=== PATIENT | female | born 1980 | race Caucasian/White ===

== ENCOUNTER 2019-04-19 01:10 | Emergency (ER) | payer OTHER ==
[2019-04-19 02:31] VITALS: BP 136/83
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
== END 2019-04-19 02:10 | disposition home or self-care (01) ==
LOC: FB.ED 01:10
DX: F12.90 Cannabis use, unspecified, uncomplicated (principal); F41.8 Other specified anxiety disorders; F90.9 Attention-deficit hyperactivity disorder, unspecified type; Z79.899 Other long term (current) drug therapy
CPT/HCPCS: 80305-QW; 99282

== ENCOUNTER 2023-11-07 03:48 | Emergency (ER) | payer BC, OTHER ==
[2023-11-07 04:48] LABS: HEMATOCRIT 34.6 % (34.2-48.2); HEMOGLOBIN 11.2 g/dL (11.4-15.5); MEAN CORPUSCULAR HEMOGLOBIN 28.4 pg (23.9-33.9); MEAN CORPUSCULAR HGB CONC 32.5 g/dL (31.9-34.8); MEAN CORPUSCULAR VOLUME 87.3 fL (76.7-100.5); MEAN PLATELET VOLUME 9.7 fL (7.1-12.4); PLATELET COUNT,PLT 266 x10(3)uL (151-488); RED BLOOD CELL COUNT 3.96 x10(6)uL (3.60-5.20); RED CELL DISTRIBUTION WIDTH 13.9 % (12.3-16.5); WHITE BLOOD CELL COUNT,WBC 19.6 x10-3/uL (3.0-10.3)
[2023-11-07 04:49] LABS: BLOOD UREA NITROGEN,BUN 18 mg/dL (7-18); BUN/CREATININE RATIO 25.7 (9-20); CALCIUM 9.1 mg/dL (8.6-10.2); CARBON DIOXIDE,CO2 28 mmol/L (21-32); CHLORIDE,CL 102 mmol/L (100-110); CREATININE 0.7 mg/dL (0.55-1.02); ESTIMATED GFR 111 mL/min (>60); GLUCOSE RANDOM 150 mg/dL (80-116); POTASSIUM,K 3.4 mmol/L (3.5-5.3); SODIUM,NA 136 mmol/L (135-145)
[2023-11-07 04:52] VITALS: BP 158/99; PULSE 114
[2023-11-07] MEDS ORDERED: Ibuprofen 800 MG Tab PO ONE (05:06)
[2023-11-07] MEDS ORDERED: Potassium Chloride 20 MEQ Tab.ER PO ONE (05:06)
[2023-11-07] MEDS ORDERED: Acetaminophen 500 MG Tab PO ONE (05:06)
[2023-11-07 05:15] LABS: BAND PERCENT MAN 1 % (0-6); LYMPHOCYTES PERCENT MAN 11 % (13-37); MONOCYTES PERCENT MAN 3 % (4-12); SEG NEUTROPHILS PERCENT MAN 85 % (46-82)
== END 2023-11-07 05:24 | disposition home or self-care (01) ==
LOC: FB.ED 03:48
DX: R07.81 Pleurodynia (principal); J20.9 Acute bronchitis, unspecified; J45.909 Unspecified asthma, uncomplicated; Z88.2 Allergy status to sulfonamides; Z91.018 Allergy to other foods
CPT/HCPCS: 36415; 80048; 84484; 85025; 93005; A9270

== ENCOUNTER 2024-12-11 20:30 | Emergency (ER) | payer OTHER ==
[2024-12-11 21:01] LABS: BILIRUBIN,URINE NEGATIVE (NEGATIVE); GLUCOSE,URINE NORMAL (NORMAL); KETONES,URINE NEGATIVE (NEGATIVE); LEUKOCYTE ESTERASE,URINE NEGATIVE (NEGATIVE); NITRITE,URINE NEGATIVE (NEGATIVE); OCCULT BLOOD,URINE NEGATIVE (NEGATIVE); PROTEIN,URINE NEGATIVE (NEGATIVE); UROBILINOGEN,URINE NORMAL (NEGATIVE)
[2024-12-11 21:09] LABS: BASOPHILS ABSOLUTE AUTO 0.1 x10-3/uL (0.0-0.1); BASOPHILS PERCENT AUTO 0.8 % (0.2-1.5); EOSINOPHILS ABSOLUTE AUTO 0.1 x10-3/uL (0.0-0.8); EOSINOPHILS PERCENT AUTO 1.1 % (0.6-8.1); HEMOGLOBIN 12.9 g/dL (11.4-15.5); LYMPHOCYTES PERCENT AUTO 17.2 % (18.4-52.1); MEAN CORPUSCULAR HEMOGLOBIN 28.8 pg (23.9-33.9); MEAN CORPUSCULAR VOLUME 87.3 fL (76.7-100.5); MEAN PLATELET VOLUME 9.7 fL (7.1-12.4); MONOCYTES ABSOLUTE AUTO 0.9 x10-3/uL (0.3-1.0); MONOCYTES PERCENT AUTO 7.5 % (4.4-15.7); NEUTROPHILS ABSOLUTE AUTO 8.4 x10-3/uL (1.5-6.3); NEUTROPHILS PERCENT AUTO 73.4 % (30.8-76.2); PLATELET COUNT,PLT 276 x10(3)uL (151-488); RED BLOOD CELL COUNT 4.47 x10(6)uL (3.60-5.20); RED CELL DISTRIBUTION WIDTH 14.1 % (12.3-16.5); WHITE BLOOD CELL COUNT,WBC 11.4 x10-3/uL (3.0-10.3)
[2024-12-11 21:11] LABS: APPEARANCE,URINE CLEAR (CLEAR); COLOR,URINE YELLOW (YELLOW)
[2024-12-11 21:14] LABS: BLOOD UREA NITROGEN,BUN 15 mg/dL (7-18); BUN/CREATININE RATIO 18.8 (9-20); CALCIUM 9.4 mg/dL (8.6-10.2); CARBON DIOXIDE,CO2 29 mmol/L (21-32); CHLORIDE,CL 102 mmol/L (100-110); CREATININE 0.8 mg/dL (0.55-1.02); EST CRCL DRUG DOSING (CG) 88.18 mL/min; ESTIMATED GFR 94 mL/min (>60); GLUCOSE RANDOM 88 mg/dL (80-116); POTASSIUM,K 3.8 mmol/L (3.5-5.3); SODIUM,NA 139 mmol/L (135-145)
[2024-12-11 21:20] LABS: ALANINE AMINOTRANSFERASE,ALT 23 U/L (12-36); ALBUMIN 3.8 g/dL (3.5-5.2); ALKALINE PHOSPHATASE 64 IU/L (56-112); ASPARTATE AMNIOTRANSFERASE,AST 13 IU/L (5-25); BILIRUBIN TOTAL 0.4 mg/dL (0.1-1.3); PROTEIN TOTAL,TP 7.5 g/dL (6.0-8.0)
[2024-12-11] MEDS: Iopamidol 755 Mg/ML 100 ML Bottle IV ONE (21:27)
[2024-12-11 21:29] VITALS: PULSE 79
[2024-12-11 22:54] VITALS: BP 126/78
== END 2024-12-11 22:38 | disposition home or self-care (01) ==
LOC: FB.ED 20:30
DX: R10.31 Right lower quadrant pain (principal); F17.210 Nicotine dependence, cigarettes, uncomplicated; Z91.011 Allergy to milk products; Z88.2 Allergy status to sulfonamides; Z91.018 Allergy to other foods; Z79.899 Other long term (current) drug therapy; Z88.1 Allergy status to other antibiotic agents; Z86.16 Personal history of COVID-19
CPT/HCPCS: 36415; 74177; 80053; 80179; 81003; 81025; 83690; 85025; 99283; 99284; Q9967